=== PATIENT | female | born 1995 | race Hispanic/Latino ===

== ENCOUNTER 2016-03-07 15:39 | Emergency (ER) | payer OTHER ==
[~2016-03-07] VITALS: Ht 149.9 cm; Wt 64.6 kg
[~2016-03-07 15:39] MED LIST: CARAFATE1 GM PO; ENDOCET 5-3251 EACH PO; FEOSOL325 MG PO; GUMMI BEAR MUL1 EACH PO; IBUPROFEN800 MG PO; MOTRIN800 MG PO; NAPROSYN500 MG PO; OXAYDO5 MG PO; PERCOCET 5/31 TABLET PO; PHENERGAN25 MG PR; PRENATABS FA T1 EACH PO; VALIUM5 MG PO; ZANTAC300 MG PO; ZOFRAN ODT4 MG PO; ZOFRAN4 MG PO; [UNRECOGNIZED DRUG - OTHER]
[2016-03-07 18:30] LABS: EOSINOPHIL (%) 0.2 % (0-5); HEMATOCRIT 33.1 % (36.0-46.0); LYMPHOCYTE COUNT 0.7 K/uL (1.0-2.8); MCH 26.5 PG (29.0-34.0); MCHC 34.1 G/DL (30.0-36.0); MCV 77.5 FL (83-99); MEAN PLAT.VOLUME 10.6 uM^3 (9.5-12.4); MONOCYTE (%) 7.7 % (3-12); MONOCYTE COUNT 0.3 K/uL (0-0.8); NEUTROPHIL (%) 75.5 % (45-76); NEUTROPHIL COUNT 3.3 K/uL (1.8-6.4); PLATELET COUNT 183 K/uL (156-360); RBC DIS.WIDTH-CV 15.5 % (11.8-14.6); RBC DIS.WIDTH-SD 42.1 % (39-53); RED BLOOD COUNT 4.27 M/uL (3.80-5.20); WHITE BLOOD COUNT 4.4 K/uL (4.1-10.2)
[2016-03-07 18:38] LABS: CHLORIDE 107 mEq/L (99-109); POTASSIUM 3.2 mEq/L (3.7-5.4); SODIUM 136 mEq/L (136-147)
[2016-03-07 18:40] LABS: GLUCOSE 102 mg/dL (70-99)
[2016-03-07 18:41] LABS: ANION GAP 10 MEQ/L (2-14)
[2016-03-07 18:42] LABS: TOTAL BILIRUBIN 0.2 mg/dL (0.0-1.0)
[2016-03-07 18:43] LABS: ALKALINE PHOSPHATASE 72 IU/L (3-129)
[2016-03-07 18:44] LABS: INFLUENZA A VIRAL ANTIGEN POSITIVE; INFLUENZA B VIRAL ANTIGEN NEGATIVE
[2016-03-07 18:44] LABS: GFR ESTIMATE (CALCULATED) > 59 mL/min/
[2016-03-07 18:45] LABS: UREA NITROGEN (BUN) 5 mg/dL (9-23)
[2016-03-07 19:14] LABS: QUANTITATIVE HCG 45509.5 MIU/ML
[2016-03-07 19:25] LABS: ADD MIUA? YES; BILIRUBIN NEGATIVE; BLOOD LARGE; COLOR YELLOW ((YELLOW)); GLUCOSE (STRIP) NEGATIVE; KETONES NEGATIVE; LEUKOCYTES SMALL; NITRITE NEGATIVE; PH, URINE 6.5 (5-8); PROTEIN (STRIP) TRACE; SPECIFIC GRAVITY 1.024 (1.000-1.030); UROBILINOGEN 0.2 MG/DL (0.2-1.0)
[2016-03-07 20:04] LABS: AMORPHOUS URATES CRYSTALS 2+; BACTERIA 1+; CASTS NONE SEEN /LPF; CRYSTALS PRESENT; EPITHELIAL CELLS 2+; MUCUS 1+; UCUL ADDED? NO; WHITE BLOOD CELLS 0-5 /HPF (0-5)
[2016-03-07] MEDS ORDERED: TAMIFLU75 MG PO (21:57)
[2016-03-07 22:18] VITALS: BP 95/46
== END 2016-03-07 22:23 | disposition home or self-care (01) ==
LOC: EME 15:39
PROVIDERS: Emergency Medicine
DX: O98.511 Other viral diseases complicating pregnancy, first trimester (principal); J10.1 Influenza due to other identified influenza virus with other respiratory manifestations; Z87.891 Personal history of nicotine dependence; K21.9 Gastro-esophageal reflux disease without esophagitis
CPT/HCPCS: 71020; 76801; 80053; 81003; 84702; 85025; 87086; 87502; 99281; 99285; J7030

== ENCOUNTER 2016-05-09 11:27 | Emergency (ER) | payer OTHER ==
[~2016-05-09] VITALS: Ht 149.9 cm; Wt 60.7 kg
[~2016-05-09 11:27] MED LIST changes: +TAMIFLU75 MG PO
[2016-05-09 12:56] LABS: HEMATOCRIT 33.9 % (36.0-46.0); MCH 27.8 PG (29.0-34.0); MCHC 32.7 G/DL (30.0-36.0); MCV 84.8 FL (83-99); MEAN PLAT.VOLUME 10.8 uM^3 (9.5-12.4); PLATELET COUNT 238 K/uL (156-360); RBC DIS.WIDTH-CV 14.6 % (11.8-14.6); RBC DIS.WIDTH-SD 45.6 % (39-53); WHITE BLOOD COUNT 9.4 K/uL (4.1-10.2)
[2016-05-09 12:57] LABS: ADD MIUA? YES; BILIRUBIN NEGATIVE; BLOOD NEGATIVE; COLOR YELLOW ((YELLOW)); GLUCOSE (STRIP) NEGATIVE; KETONES 20; LEUKOCYTES TRACE; NITRITE NEGATIVE; PROTEIN (STRIP) 30; SPECIFIC GRAVITY 1.017 (1.000-1.030); UROBILINOGEN 0.2 MG/DL (0.2-1.0)
[2016-05-09 13:10] LABS: CHLORIDE 105 mEq/L (99-109); POTASSIUM 3.8 mEq/L (3.7-5.4); SODIUM 136 mEq/L (136-147)
[2016-05-09 13:12] LABS: GLUCOSE 84 mg/dL (70-99)
[2016-05-09 13:14] LABS: ANION GAP 12 MEQ/L (2-14); TOTAL BILIRUBIN 0.2 mg/dL (0.0-1.0)
[2016-05-09 13:16] LABS: ALKALINE PHOSPHATASE 70 IU/L (3-129); GFR ESTIMATE (CALCULATED) > 59 mL/min/
[2016-05-09 13:17] LABS: UREA NITROGEN (BUN) 5 mg/dL (9-23)
[2016-05-09 13:19] LABS: BACTERIA NONE SEEN /HPF; EPITHELIAL CELLS 1+ /HPF; MUCUS 1+ /LPF; RED BLOOD CELLS NONE SEEN /HPF (0-5); UCUL ADDED? NO; WHITE BLOOD CELLS NONE SEEN /HPF (0-5)
[2016-05-09] MEDS ORDERED: PROMETHAZINE HC25 M1 PO (14:12)
[2016-05-09 17:16] VITALS: BP 105/49
== END 2016-05-09 17:19 | disposition home or self-care (01) ==
LOC: EME 11:27
DX: O21.9 Vomiting of pregnancy, unspecified (principal); O26.891 Other specified pregnancy related conditions, first trimester; R11.0 Nausea; R10.84 Generalized abdominal pain; Z87.891 Personal history of nicotine dependence
CPT/HCPCS: 76815; 80053; 81003; 84702; 85027; 99281; 99284; J2405; J7030

== ENCOUNTER 2016-10-01 23:14 | Inpatient (IN) | payer OTHER ==
[~2016-10-01] VITALS: Ht 149.9 cm; Wt 65.3 kg
[~2016-10-01 23:14] MED LIST changes: +PROMETHAZINE HC25 M1 PO; +ZOFRAN ODT8 MG PO
[2016-10-01 23:41] VITALS: BP 106/51
[2016-10-02 01:03] LABS: EOSINOPHIL (%) 0.9 % (0-5); EOSINOPHIL COUNT 0.1 K/uL (0-0.3); HEMATOCRIT 27.2 % (36.0-46.0); IMMATURE GRANULOCYTE (%) 0.3 % (0.0-0.7); LYMPHOCYTE COUNT 3.1 K/uL (1.0-2.8); MCH 24.8 PG (29.0-34.0); MCHC 31.6 G/DL (30.0-36.0); MCV 78.4 FL (83-99); MEAN PLAT.VOLUME 11.4 uM^3 (9.5-12.4); MONOCYTE (%) 8.1 % (3-12); MONOCYTE COUNT 0.8 K/uL (0-0.8); PLATELET COUNT 175 K/uL (156-360); RBC DIS.WIDTH-CV 16.2 % (11.8-14.6); RBC DIS.WIDTH-SD 45.2 % (39-53); RED BLOOD COUNT 3.47 M/uL (3.80-5.20); WHITE BLOOD COUNT 10.1 K/uL (4.1-10.2)
[2016-10-02 01:49] VITALS: BP 100/50
[2016-10-02] MEDS ORDERED: OXYCODONE-APAP1 EACH PO (02:47)
[2016-10-02] MEDS ORDERED: DOCUSATE SODIU100 MG PO (02:47)
[2016-10-02] MEDS ORDERED: IBUPROFEN800 MG PO (02:47)
[2016-10-02] MEDS ORDERED: IRON325 M1 PO (06:22)
[2016-10-02] MEDS ORDERED: REGLAN10 MG PO (06:33)
[2016-10-02 08:10] VITALS: BP 96/53
[2016-10-02 10:10] VITALS: BP 101/59
[2016-10-02 15:18] VITALS: BP 106/51
[2016-10-02 19:39] VITALS: BP 106/53
[2016-10-02 23:06] VITALS: BP 102/48
[2016-10-03 03:35] VITALS: BP 90/40
[2016-10-03 07:12] VITALS: BP 108/56
[2016-10-03 08:16] LABS: EOSINOPHIL (%) 0.9 % (0-5); EOSINOPHIL COUNT 0.1 K/uL (0-0.3); HEMATOCRIT 21.3 % (36.0-46.0); IMMATURE GRANULOCYTE (%) 0.2 % (0.0-0.7); LYMPHOCYTE COUNT 2.3 K/uL (1.0-2.8); MCH 25.3 PG (29.0-34.0); MCHC 31.9 G/DL (30.0-36.0); MCV 79.2 FL (83-99); MEAN PLAT.VOLUME 12.1 uM^3 (9.5-12.4); MONOCYTE COUNT 0.6 K/uL (0-0.8); NEUTROPHIL (%) 62.9 % (45-76); PLATELET COUNT 144 K/uL (156-360); RBC DIS.WIDTH-CV 16.5 % (11.8-14.6); RBC DIS.WIDTH-SD 46.7 % (39-53)
[2016-10-03 08:17] LABS: RED BLOOD COUNT 2.69 M/uL (3.80-5.20)
[2016-10-03 11:18] VITALS: BP 126/69
[2016-10-03 15:18] VITALS: BP 117/67
[2016-10-03 19:08] VITALS: BP 117/65
[2016-10-03 22:50] VITALS: BP 118/55
[2016-10-04 07:01] VITALS: BP 93/51
[2016-10-04 15:05] VITALS: BP 111/56
[2016-10-04 23:30] VITALS: BP 114/60
[2016-10-05 07:15] VITALS: BP 128/78
[2016-10-05] MEDS ORDERED: PERCOCET 5/31 TABLET PO (10:14)
[2016-10-05] MEDS ORDERED: MOTRIN800 MG PO (10:14)
[2016-10-05] MEDS ORDERED: FEOSOL325 MG PO (10:15)
== END 2016-10-05 14:50 | disposition home or self-care (01) | DRG 765 ==
LOC: LDRP-OP 23:14 → 2WEST 23:15 → LDRP-OP 11-23 12:32
PROVIDERS: Nurse Practitioner; Obstetrics & Gynecology Gynecology
PROC: 10D00Z1 Extraction of Products of Conception, Low, Open Approach (ICD-10-PCS; principal; 2016-10-02)
DX: O60.14X0 Preterm labor third trimester with preterm delivery third trimester, not applicable or unspecified (principal); D62 Acute posthemorrhagic anemia; O69.81X0 Labor and delivery complicated by cord around neck, without compression, not applicable or unspecified; O99.344 Other mental disorders complicating childbirth; F90.9 Attention-deficit hyperactivity disorder, unspecified type; F41.9 Anxiety disorder, unspecified; F32.9 Major depressive disorder, single episode, unspecified; Z37.0 Single live birth; Z3A.36 36 weeks gestation of pregnancy; O99.02 Anemia complicating childbirth; D50.9 Iron deficiency anemia, unspecified; O36.8930 Maternal care for other specified fetal problems, third trimester, not applicable or unspecified
CPT/HCPCS: 85025; 86900; 86901; G0378; J0595; J0690; J1170; J1885; J2250; J2274; J2540; J3010; J3105; J7120

== ENCOUNTER 2016-10-10 10:40 | Emergency (ER) | payer OTHER ==
[~2016-10-10] VITALS: Ht 149.9 cm; Wt 65.9 kg
[~2016-10-10 10:40] MED LIST changes: +DOCUSATE SODIU100 MG PO; +IRON325 M1 PO; +OXYCODONE-APAP1 EACH PO; +REGLAN10 MG PO
[2016-10-10 13:29] LABS: CHLORIDE 112 mEq/L (99-109); POTASSIUM 3.6 mEq/L (3.7-5.4)
[2016-10-10 13:30] LABS: HEMATOCRIT 29.9 % (36.0-46.0); MCH 24.4 PG (29.0-34.0); MCHC 30.8 G/DL (30.0-36.0); MCV 79.3 FL (83-99); MEAN PLAT.VOLUME 10.1 uM^3 (9.5-12.4); PLATELET COUNT 298 K/uL (156-360); RBC DIS.WIDTH-CV 17.2 % (11.8-14.6); RED BLOOD COUNT 3.77 M/uL (3.80-5.20); SODIUM 144 mEq/L (136-147); WHITE BLOOD COUNT 6.1 K/uL (4.1-10.2)
[2016-10-10 13:32] LABS: GLUCOSE 85 mg/dL (70-99)
[2016-10-10 13:33] LABS: ANION GAP 10 MEQ/L (2-14)
[2016-10-10 13:34] LABS: TOTAL BILIRUBIN 0.4 mg/dL (0.0-1.0)
[2016-10-10 13:35] LABS: ALKALINE PHOSPHATASE 135 IU/L (3-129); GFR ESTIMATE (CALCULATED) > 59 mL/min/
[2016-10-10 13:37] LABS: UREA NITROGEN (BUN) 13 mg/dL (9-23)
[2016-10-10 13:39] LABS: LIPASE 6 U/L (1.0-51.0)
[2016-10-10] MEDS ORDERED: PERCOCET 5/31 TABLET PO (14:21)
[2016-10-10] MEDS ORDERED: MOTRIN600 MG PO (14:22)
[2016-10-10 14:59] VITALS: BP 129/82
== END 2016-10-10 15:00 | disposition home or self-care (01) ==
LOC: EME 10:40
PROVIDERS: Nurse Practitioner Family
DX: O90.89 Other complications of the puerperium, not elsewhere classified (principal); G89.18 Other acute postprocedural pain; R10.2 Pelvic and perineal pain; R11.0 Nausea; R26.2 Difficulty in walking, not elsewhere classified; Z90.49 Acquired absence of other specified parts of digestive tract; Z87.891 Personal history of nicotine dependence
CPT/HCPCS: 74177; 80053; 83690; 85027; 99281; 99284; J7030

== ENCOUNTER 2017-02-08 17:05 | Emergency (ER) | payer OTHER ==
[~2017-02-08] VITALS: Ht 180.3 cm; Wt 54.5 kg
[~2017-02-08 17:05] MED LIST changes: +MOTRIN600 MG PO
[2017-02-08 17:37] LABS: HEMATOCRIT 34.3 % (36.0-46.0); HEMOGLOBIN 11.6 G/DL (11.9-15.5); MCH 28.9 PG (29.0-34.0); MCHC 33.8 G/DL (30.0-36.0); MCV 85.3 FL (83-99); PLATELET COUNT 238 K/uL (156-360); RBC DIS.WIDTH-CV 13.9 % (11.8-14.6); RBC DIS.WIDTH-SD 43.2 % (39-53); RED BLOOD COUNT 4.02 M/uL (3.80-5.20); WHITE BLOOD COUNT 7.2 K/uL (4.1-10.2)
[2017-02-08 17:48] LABS: ALBUMIN 4.2 g/dL (3.2-4.8)
[2017-02-08 17:49] LABS: CHLORIDE 107 mEq/L (99-109); POTASSIUM 3.7 mEq/L (3.7-5.4); SODIUM 138 mEq/L (136-147)
[2017-02-08 17:51] LABS: GLUCOSE 86 mg/dL (70-99); TOTAL PROTEIN 7.4 g/dL (6.4-8.3)
[2017-02-08 17:53] LABS: TOTAL BILIRUBIN 0.4 mg/dL (0.0-1.0)
[2017-02-08 17:54] LABS: ALKALINE PHOSPHATASE 74 IU/L (3-129)
[2017-02-08 17:55] LABS: CREATININE 0.7 mg/dL (0.6-1.3); GFR ESTIMATE (CALCULATED) > 59 mL/min/
[2017-02-08 17:56] LABS: AST (GOT) 14 IU/L (2-34); UREA NITROGEN (BUN) 10 mg/dL (9-23)
[2017-02-08 17:57] LABS: ALT (GPT) 11 IU/L (3-49)
[2017-02-08 18:04] LABS: QUANTITATIVE HCG 1973.4 MIU/ML
[2017-02-08 18:41] LABS: APPEARANCE CLEAR ((CLEAR)); BILIRUBIN NEGATIVE; BLOOD MODERATE; COLOR YELLOW ((YELLOW)); GLUCOSE (STRIP) NEGATIVE; KETONES 5; LEUKOCYTES NEGATIVE; NITRITE NEGATIVE; PROTEIN (STRIP) NEGATIVE; UROBILINOGEN 0.2 MG/DL (0.2-1.0)
[2017-02-08 18:48] LABS: BACTERIA NONE SEEN /HPF; EPITHELIAL CELLS RARE /HPF; MUCUS 1+ /LPF; RED BLOOD CELLS 30-40 /HPF (0-5); UCUL ADDED? NO; WHITE BLOOD CELLS 0-5 /HPF (0-5)
[2017-02-08] MEDS ORDERED: TYLENOL WITH C1 EACH PO (20:52)
[2017-02-08 21:50] VITALS: BP 102/65
== END 2017-02-08 21:55 | disposition home or self-care (01) ==
LOC: EME 17:05
DX: O04.89 (Induced) termination of pregnancy with other complications (principal); G89.18 Other acute postprocedural pain; R10.30 Lower abdominal pain, unspecified; K21.9 Gastro-esophageal reflux disease without esophagitis; F31.9 Bipolar disorder, unspecified; F17.200 Nicotine dependence, unspecified, uncomplicated
CPT/HCPCS: 76856; 80053; 81003; 84702; 85027; 99281; 99285

== ENCOUNTER 2017-02-23 18:41 | Emergency (ER) | payer OTHER ==
[~2017-02-23] VITALS: Ht 149.9 cm; Wt 54.0 kg
[~2017-02-23 18:41] MED LIST changes: +TYLENOL WITH C1 EACH PO
[2017-02-23 22:27] VITALS: BP 100/52
[2017-02-23] MEDS ORDERED: PERCOCET 5/31 TABLET PO (23:17)
== END 2017-02-23 23:44 | disposition home or self-care (01) ==
LOC: EME 18:41
DX: T14.8XXA Other injury of unspecified body region, initial encounter (principal); S06.0X0A Concussion without loss of consciousness, initial encounter; W01.0XXA Fall on same level from slipping, tripping and stumbling without subsequent striking against object, initial encounter; W20.8XXA Other cause of strike by thrown, projected or falling object, initial encounter
CPT/HCPCS: 70450; 72040; 72070; 72100; 99281; 99285; J3010